=== PATIENT | male | born 1985 | race African-American/Black ===

== ENCOUNTER 2023-11-04 11:34 | Emergency (ER) | payer OTHER ==
[~2023-11-04] VITALS: Ht 185.4 cm; Wt 72.7 kg
[2023-11-04 12:05] VITALS: TEMP 97.1
[2023-11-04] MEDS: LORazepam 1 MG TABLET PO ONE (15:05)
[2023-11-04 15:17] LABS: EOSINOPHILS % (AUTO) 0.9 % (1.0-6.0); HEMOGLOBIN 12.8 g/dL (13.5-17.5); LYMPHOCYTES # (AUTO) 1.2 K/uL (1.0-4.8); LYMPHOCYTES % (AUTO) 17.9 % (22.0-44.0); MEAN CORPUSCULAR HEMOGLOBIN 37.8 pg (26.0-34.0); MEAN CORPUSCULAR HGB CONC 33.7 G/dL (31.0-37.0); MEAN CORPUSCULAR VOLUME 112 fL (80-100); MONOCYTES # (AUTO) 0.7 K/uL (0.1-1.0); MONOCYTES % (AUTO) 11.3 % (2.0-9.0); NEUTROPHILS # (AUTO) 4.4 K/uL (1.8-7.7); NEUTROPHILS % (AUTO) 68.9 % (40.0-70.0); PLATELET COUNT (AUTO) 264 K/uL (150-450); RED BLOOD CELL COUNT(AUTO) 3.39 MIL/uL (4.50-5.90); RED CELL DISTRIBUTION WIDTH 14.6 % (11.5-14.5); WHITE BLOOD COUNT (AUTO) 6.5 K/uL (4.5-11.0)
[2023-11-04 15:29] LABS: ANION GAP 5 mmol/L (8-16); CALCIUM, TOTAL 9.5 mg/dL (8.8-10.5); CARBON DIOXIDE 34 mmol/L (22-29); CHLORIDE 102 mmol/L (98-107); CREATININE 0.77 mg/dL (0.60-1.30); GLOMERULAR FILTR. RATE CALC > 60 mL/min (>60); GLUCOSE,RANDOM 93 mg/dL (70-110); POTASSIUM 3.8 mmol/L (3.5-5.1); SODIUM SERUM 141 mmol/L (136-145); UREA NITROGEN, BLOOD 5 mg/dL (7-18)
[2023-11-04 15:34] LABS: ALANINE AMINOTRANSFERASE 125 U/L (12-78); ALBUMIN 3.8 g/dL (3.4-5.0); ALKALINE PHOSPHATASE 93 U/L (46-116); ASPARTATE AMINOTRANSFERASE 245 U/L (15-37); BILIRUBIN,TOTAL 1.2 mg/dL (0.1-1.0); TOTAL PROTEIN, SERUM 7.6 g/dL (6.4-8.2)
[2023-11-04 15:39] LABS: ALCOHOL, BLOOD (SERUM) 7 mg/dL (0-10)
[2023-11-04 15:41] LABS: B-TYPE NATRIURETIC PEPTIDE 69 pg/mL (0-100); TROPONIN I-HIGH SENSITIVITY 4 ng/L (<76)
[2023-11-04 15:44] LABS: RBC MORPHOLOGY COMMENT ABNORMAL RBC MORPH
[2023-11-04] MEDS ORDERED: NAPR-1025 PO (16:41)
[2023-11-04] MEDS ORDERED: CHLO25CA6 PO (16:41)
[2023-11-04] MEDS ORDERED: METH-812 PO (16:48)
[2023-11-04 18:16] VITALS: BP 136/69; PULSE 79; RESP 18
== END 2023-11-04 18:17 | disposition home or self-care (01) ==
LOC: EMS 11:34
DX: F10.239 Alcohol dependence with withdrawal, unspecified (principal); R60.0 Localized edema; M62.838 Other muscle spasm; Z88.8 Allergy status to other drugs, medicaments and biological substances; Z98.890 Other specified postprocedural states
CPT/HCPCS: 99285; 71045; 80053; 83880; 84484; 85025; 36415; 73590; 73630; 93005; G0480